=== PATIENT | male | born 1970 | race African-American/Black ===

== ENCOUNTER 2017-03-15 17:23 | Emergency (ER) | payer OTHER ==
[~2017-03-15] VITALS: Ht 172.7 cm; Wt 74.8 kg
[2017-03-15 18:25] VITALS: BP 120/80
[2017-03-15 18:26] VITALS: BP 125/74
--- NOTE | 2017-03-15 21:10 | Emergency Room Report ---
History of Present Illness General Chief Complaint: Medical Clearance Source: Patient, EMS Present Illness HPI 46-year-old male presents for medical clearance. Patient is in police custody. he states he feels like he may have a seizure. Patient has history of seizures and takes Keppra. States he took it this morning. States he does sometimes skip a dose. Admits to marijuana use. Denies any chest pain or shortness of breath. Denies fevers or chills. No other aggravating or leading factors. Denies any other associated symptoms Allergies: Coded Allergies: No Known Allergies (Unverified , 03/15/17) Patient History Past Medical History: seizures Past Surgical History: none Pertinent Family History: none Social History: Reports: drug use, Denies: smoking, alcohol use Immunizations: UTD Reviewed Nursing Documentation: PMH: Agreed, PSxH: Agreed Nursing Documentation-PMH Hx Seizures: Yes Review of Systems All Other Systems: negative except mentioned in HPI Physical Exam Vital Signs Date Time Temp Pulse Resp B/P (MAP) Pulse Ox O2 Delivery O2 Flow Rate FiO2 03/15/17 17:22 97.5 89 20 125/74 100 Room Air Sp02 EP Interpretation: reviewed, normal General Appearance: no apparent distress, alert, GCS 15, non-toxic Head: normocephalic, atraumatic Eyes: bilateral eye normal inspection, bilateral eye PERRL ENT: hearing grossly normal, normal pharynx, no angioedema, normal voice Neck: full range of motion, supple/symm/no masses Respiratory: chest non-tender, lungs clear, normal breath sounds, speaking full sentences Cardiovascular #1: regular rate, rhythm, no edema Cardiovascular #2: 2+ carotid (R), 2+ carotid (L), 2+ radial (R), 2+ radial (L) , 2+ dorsalis pedis (R), 2+ dorsalis pedis (L) Gastrointestinal: normal bowel sounds, non tender, soft, non-distended, no guarding, no rebound Rectal: deferred Genitourinary: normal inspection, no CVA tenderness Musculoskeletal: back normal, gait/station normal, normal range of motion, non- tender Neurologic: alert, oriented x3, responsive, motor strength/tone normal, sensory intact, speech normal Psychiatric: judgement/insight normal, memory normal, mood/affect normal, no suicidal/homicidal ideation Reflexes: 3+ bicep (R), 3+ bicep (L), 3+ tricep (R), 3+ tricep (L), 3+ knee (R) , 3+ knee (L) Skin: normal color, no rash, warm/dry, well hydrated Lymphatic: no adenopathy Medical Decision Making Diagnostic Impression: Primary Impression: Seizure Additional Impression: Medical clearance for incarceration ER Course Hospital Course 46-year-old male presents to ED for and nursing home clearance. h/o seizures Clinical course Patient placed on stretcher. Handcuffs. After initial history, physical exam reveals a male in no acute distress. physical exam was unremarkable. No focal neurological deficits. Vital stable. Patient given dose of Keppra here. Observed no seizure activity. I believe patient be safely discharged into police custody. Diagnosis - medical clearance for incarceration, seizure stable and discharged into police custody Last Vital Signs Date Time Temp Pulse Resp B/P (MAP) Pulse Ox O2 Delivery O2 Flow Rate FiO2 03/15/17 18:26 97.5 20 125/74 100 Room Air 03/15/17 18:25 68 Status: improved Disposition: D/C TO LAW ENFORCEMENT IN CUST Condition: Stable Departure Forms: Alf Clearance Patient Instructions: Seizure, Adult, [id number] AUDREY MORRISSEY M.D. Mar 15, 2017 21:10
== END 2017-03-15 18:27 ==
LOC: EDBD 17:23 → EMR 17:42
DX: R56.9 Unspecified convulsions (principal)
CPT/HCPCS: 80299; 99283